=== PATIENT | female | born 1985 | race Caucasian/White ===

== ENCOUNTER 2016-04-28 23:28 | Emergency (ER) | payer SELFPAY ==
[~2016-04-28] VITALS: Ht 157.5 cm; Wt 85.9 kg
[~2016-04-28 23:28] MED LIST: DENIES; IBUP-1542 PO
[2016-04-28 23:30] VITALS: Ht 157.5 cm; Wt 85.9 kg
== END 2016-04-29 03:37 | disposition left against medical advice (07) ==
LOC: FTE 23:28
DX: Z53.21 Procedure and treatment not carried out due to patient leaving prior to being seen by health care provider (principal)

== ENCOUNTER 2016-09-07 05:32 | Emergency (ER) | END 2016-09-07 07:30 | disposition home or self-care (01) | DX: R06.00 Dyspnea, unspecified (principal); R07.9 Chest pain, unspecified | CPT/HCPCS: 71010; 93005; 94664; Z7502; Z7610 ==

== ENCOUNTER 2016-12-14 23:11 | Emergency (ER) | payer SELFPAY ==
[~2016-12-14] VITALS: Ht 170.2 cm; Wt 82.0 kg
[~2016-12-14 23:11] MED LIST changes: +ALBU18HF INHALATION; +AZIT250T94 PO
[2016-12-14 23:14] VITALS: Ht 170.2 cm; Wt 82.0 kg
== END 2016-12-15 04:45 | disposition left against medical advice (07) ==
LOC: FTE 23:11
DX: Z53.21 Procedure and treatment not carried out due to patient leaving prior to being seen by health care provider (principal)

== ENCOUNTER 2017-04-19 19:13 | Emergency (ER) | END 2017-04-19 19:59 | disposition home or self-care (01) ==

== ENCOUNTER 2017-07-03 23:13 | Emergency (ER) | END 2017-07-04 01:35 | disposition home or self-care (01) ==

== ENCOUNTER 2017-10-29 05:05 | Emergency (ER) | END 2017-10-29 08:10 | disposition home or self-care (01) ==

== ENCOUNTER 2018-09-20 00:10 | Emergency (ER) | payer MEDICAID ==
[~2018-09-20] VITALS: Ht 157.5 cm; Wt 98.2 kg
[~2018-09-20 00:10] MED LIST changes: +AZIT250T PO; -AZIT250T94 PO; +BACL10TA PO; +CEPH-443 PO; +CLIN300C10 PO; +HYDR-4011 PO; +MECL-77 PO; +ONDA4TAB14 PO; +SULF1TAB31 PO
[2018-09-20 00:11] VITALS: BP 130/82; PULSE 93; RESP 14; Ht 157.5 cm; Wt 98.2 kg
--- NOTE | 2018-09-20 00:57 | ERD ---
ER Documentation Chief Complaint Chief Complaint BACK PAIN X 1 YEAR. HPI Patient is a 33-year-old female patient denies any fevers, chills, nausea, vomiting, who presents the ER for concerns of lower back pain for the last year. She states the pain comes and goes. Patient denies dysuria, frequency, urgency or hematuria. Patient states she is been taking Tylenol and tramadol which do help with her pain however pain returns. Patient denies any saddle anesthesia, urine incontinence or stool incontinence. Patient denies any recent heavy lifting. Patient denies any chest pain or shortness of breath. Patient states she is currently not working. Patient denies any drug use. ROS All systems reviewed and are negative except as per history of present illness. Medications Home Meds Active Scripts Baclofen* (Baclofen*) 10 Mg Tablet, 10 MG PO Q8, #20 TAB Prov:ELIGIO ARROYO PA-C 09/20/18 Ibuprofen* (Motrin*) 600 Mg Tab, 600 MG PO Q6, #30 TAB Prov:ELIGIO ARROYO PA-C 09/20/18 Ondansetron (Ondansetron Odt) 4 Mg Tab.rapdis, 4 MG PO Q6H PRN for NAUSEA AND/OR VOMITING, #10 TAB Prov:ELIGIO ARROYO PA-C 10/29/17 Ibuprofen* (Motrin*) 600 Mg Tab, 600 MG PO Q6, #30 TAB Prov:ELIGIO ARROYO PA-C 10/29/17 Meclizine Hcl* (Meclizine Hcl*) 25 Mg Tablet, 25 MG PO Q8H PRN for DIZZINESS, #15 TAB Prov:ELIGIO ARROYO PA-C 10/29/17 Ondansetron (Ondansetron Odt) 4 Mg Tab.rapdis, 4 MG PO Q6H PRN for NAUSEA AND/OR VOMITING, #10 TAB Prov:POLLO MAK PA-C 07/04/17 Hydrocodone/Acetaminophen ([place] 5-325 Tablet) 1 Each Tablet, 1 TAB PO Q6H PRN for PAIN, #20 TAB Prov:POLLO MAK PA-C 07/04/17 Sulfamethoxazole/Trimethoprim* (Bactrim Ds* Tablet) 1 Each Tablet, 1 TAB PO BID, #14 TAB Prov:POLLO MAK PA-C 07/04/17 Cephalexin* (Keflex*) 500 Mg Capsule, 500 MG PO QID for 7 Days, CAP Prov:POLLO MAK PA-C 07/04/17 Clindamycin Hcl* (Clindamycin Hcl*) 300 Mg Capsule, 300 MG PO TID for 10 Days, CAP Prov:TONYA TRIVEDI [employer] 04/19/17 Ibuprofen* (Motrin*) 600 Mg Tab, 600 MG PO Q6H PRN for PAIN AND OR ELEVATED TEMP, #30 TAB Prov:TONYA TRIVEDI [employer] 04/19/17 Azithromycin* (Zithromax*) 250 Mg Tablet, 250 MG PO DAILY for 4 Days, TAB Prov:YESIKA HUANG MD 09/07/16 Albuterol Sulfate* (Ventolin HFA*) 18 Gm Hfa.aer.ad, 2 PUFF INHALATION Q4H, #1 INHALER Prov:YESIKA HUANG MD 09/07/16 Ibuprofen* (Motrin*) 600 Mg Tab, 600 MG PO BID, #30 TAB 0 Refills Prov:DORA BURNS PA-C 04/25/15 Reported Medications [Denies] No Conflict Check 01/19/12 Allergies Allergies: Coded Allergies: No Known Allergy (Verified , 07/28/11) PMhx/Soc History of Surgery: Yes (c/section x3) Anesthesia Reaction: No Hx Neurological Disorder: No Hx Respiratory Disorders: No Hx Cardiac Disorders: No Hx Psychiatric Problems: No Hx Miscellaneous Medical Probl: Yes (DENIES MEDICAL PROBLEMS) Hx Alcohol Use: No Hx Substance Use: No Hx Tobacco Use: No Smoking Status: Never smoker FmHx Family History: No diabetes Physical Exam Vitals Vital Signs Date Temp Pulse Resp B/P (MAP) Pulse Ox O2 O2 Flow FiO2 Time Delivery Rate 09/20/18 98.6 93 14 130/82 98 00:11 (98) Physical Exam GENERAL: Well-developed, well-nourished female. Appears in no acute distress. HEAD: Normocephalic, atraumatic. EYES: Pupils are equally reactive bilaterally. EOMs grossly intact. No conjunctival erythema. ENT: Moist mucous membranes. No uvula deviation. No kissing tonsils. NECK: Supple. No meningismus. Normal range of motion of the neck. LUNG: Clear to auscultation bilaterally. No rhonchi, wheezing, rales or coarse breath sounds. HEART: Regular rate and rhythm. No murmurs, rubs or gallops. BACK: No midline tenderness. Tender to palpation of bilateral lumbar paraspinal muscles. EXTREMITIES: Equal pulses bilaterally. No peripheral clubbing, cyanosis or edema. No unilateral leg swelling. NEUROLOGIC: Alert and oriented. Moving all four extremities without any difficulty. Normal speech. Steady gait. SKIN: Normal color. Warm and dry. No rashes or lesions. Results 24 hrs Current Medications Medications Dose Sig/Tamera Start Time Status Last (Trade) Ordered Route PRN Stop Time Admin Dose Reason Admin Ibuprofen 600 mg ONCE ONCE 09/20/18 (Motrin) PO 01:00 09/20/18 01:01 Procedures/MDM MEDICAL DECISION MAKING: This is a 33-year-old female presents ER for concerns of lower back pain for the last year. Vital signs were reviewed. Patient was afebrile. Patient denied any saddle anesthesia, urinary incontinence, bowel incontinence, night pain or recent trauma. Patient was given ibuprofen for pain. Patient was advised that she is to follow-up with the spinal surgeon for further management of her sy mptoms. At this time, patient presentation is most consistent lower back pain. Low suspicion for cauda equine syndrome, spinal fractures, epidural abscess, spinal metastases, osteomyelitis, aortic dissection, ruptured or leaking AA, DJD, sciatica, pyelonephritis or nephrolithiasis. PRESCRIPTIONS: Ibuprofen Baclofen Patient was not take back pain when driving or operating any machinery. DISCHARGE: At this time, patient is stable for discharge and outpatient management. RICE therapy and ROM exercises were advised to avoid stiffness. I have instructed the patient to follow-up with his/her primary care physician in 1-2 days. I have discussed with the patient the possibility of needing to see an bibliographic services specialist for further workup and imaging if the pain persists. I have instructed the patient to promptly return to the ER for any new or worsening symptoms including increased pain, swelling, warmth, urinary incontinence, stool incontinence, weakness or numbness. The patient and/or family expressed unders tanding of and agreement with this plan. All questions were answered. Home care instructions were provided. Disclaimer: Inadvertent spelling and grammatical errors are likely due to EHR/dictation software use and do not reflect on the overall quality of patient care. Also, please note that the electronic time recorded on this note does not necessarily reflect the actual time of the patient encounter. Departure Diagnosis: Primary Impression: Back pain Back pain location: low back pain Chronicity: chronic Back pain l aterality: unspecified Sciatica presence: unspecified whether sciatica present Qualified Codes: M54.5 - Low back pain; G89.29 - Other chronic pain Condition: Fair Patient Instructions: Back Pain (Acute Or Chronic) Referrals: COMM[facility] YOU HAVE RECEIVED A MEDICAL SCREENING EXAM AND THE RESULTS INDICATE THAT YOU DO NOT HAVE A CONDITION THAT REQUIRES URGENT TREATMENT IN THE EMERGENCY DEPARTMENT. FURTHER EVALUATION AND TREATMENT OF YOUR CONDITION CAN WAIT UNTIL YOU ARE SEEN IN YOUR DOCTORS OFFICE WITHIN THE NEXT 1-2 DAYS. IT IS YOUR RESPONSIBILITY TO MAKE AN APPOINTMENT FOR FOLOW-UP CARE. IF YOU HAVE A PRIMARY DOCTOR --you should call your primary doctor and schedule an appointment IF YOU DO NOT HAVE A PRIMARY DOCTOR YOU CAN CALL OUR PHYSICIAN REFERRAL HOTLINE AT IF YOU CAN NOT AFFORD TO SEE A PHYSICIAN YOU CAN CHOSE FROM THE FOLLOWING [facility] [address] [facility] [facility] [address] [facility]. [facility] [address] [facility] [facility] [address] [facility] [facility] [address] [facility]. [facility]. [address] [facility]. [facility] YOU HAVE RECEIVED A MEDICAL SCREENING EXAM AND THE RESULTS INDICATE THAT YOU DO NOT HAVE A CONDITION THAT REQUIRES URGENT TREATMENT IN THE EMERGENCY DEPARTMENT. FURTHER EVALUATION AND TREATMENT OF YOUR CONDITION CAN WAIT UNTIL YOU ARE SEEN IN YOUR DOCTORS OFFICE WITHIN THE NEXT 1-2 DAYS. IT IS YOUR RESPONSIBILITY TO MAKE AN APPOINTMENT FOR FOLOW-UP CARE. IF YOU HAVE A PRIMARY DOCTOR --you should call your primary doctor and schedule and appointment IF YOU DO NOT HAVE A PRIMARY DOCTOR YOU CAN CALL OUR PHYSICIAN REFERRAL HOTLINE AT . IF YOU CAN NOT AFFORD TO SEE A PHYSICIAN YOU CAN CHOSE FROM THE FOLLOWING [facility] INSTITUTIONS: [facility] [address] [place] [address] [facility] [address] [place] [address] [facility] [address] [place] [address] Additional Instructions: Call your primary care doctor TOMORROW for an appointment during the next 1-2 days.See the doctor sooner or return here if your condition worsens before your appointment time. ELIGIO ARROYO PA-C Sep 20, 2018 00:57
[2018-09-20] MEDS ORDERED: IBUPROFEN 600 MG TAB PO ONE (01:00)
== END 2018-09-20 01:24 | disposition home or self-care (01) ==
LOC: FTE 00:10
DX: M54.5 Low back pain (principal); G89.29 Other chronic pain
CPT/HCPCS: Z7502; Z7610; 99283